=== PATIENT | male | born 1990 | race Caucasian/White ===

== ENCOUNTER 2022-03-30 08:53 | Emergency (ER) | payer OTHER, BC ==
[2022-03-30] MEDS ORDERED: IBUPROFEN 400 MG TABLET (FP) PO ONE (09:20)
[2022-03-30 09:34] VITALS: BP 127/79; PULSE 58; RESP 16; TEMP 97.8; BMI 25.5
== END 2022-03-30 10:27 | disposition home or self-care (01) ==
LOC: FER 08:53
DX: S67.10XA Crushing injury of unspecified finger(s), initial encounter (principal); W23.1XXA Caught, crushed, jammed, or pinched between stationary objects, initial encounter
CPT/HCPCS: 73140-TC-RT-FY; 99283-25